=== PATIENT | male | born 1965 | race Caucasian/White ===

== ENCOUNTER 2021-12-27 07:57 | Outpatient (CLI) | payer OTHER, SELFPAY ==
--- NOTE | 2021-12-27 12:38 | WPDPFTINT ---
PFT Procedure Performed PFT Procedure Performed Spirometry with Pre/Post Bronchodilator Plethysmography (Lung Vol) Diffusing Cap (DLCO) Flow Vol Loop PFT Interpretation Lung volumes were measured with the body plethysmography method. Lung volumes are unremarkable. Spirometry showed normal expiratory flow rates and a normal FEV1 to FVC ratio of 77%. Following administration of a bronchodilator there was no significant change in the expiratory flow rates. Lung diffusion capacity is borderline normal at 75% predicted. The flow volume loop is unremarkable. Impression: Spirometry, lung volumes, and lung diffusion capacity all within the normal range.
--- NOTE | 2021-12-27 12:40 | WPDSIXMINUTE ---
Six Minute Walk Procedure Procedure Performed Pulmonary Stress Test (6 min walk) Six Minute Walk Six Minute Walk: This 6 minute walk test was carried out with the patient breathing ambient air. The pre walk oxyhemoglobin saturation was 93%. The patient walked approximately 442 m with no stops during testing. During the walk the oxyhemoglobin saturation remained 94% or higher. The perceived dyspnea at baseline on the Isaiah scale was 0.5 and increased to 2 at the end of testing. Impression: No evidence of oxyhemoglobin desaturation on this testing.
== END 2021-12-27 07:58 | disposition home or self-care (01) ==
LOC: ANHPFT 07:59
PROVIDERS: Visit Provider Nurse Practitioner
DX: J43.9 Emphysema, unspecified (principal)
CPT/HCPCS: 94060; 94618; 94726; 94729

== ENCOUNTER 2022-03-21 07:45 | Outpatient (CLI) | payer OTHER, SELFPAY ==
--- NOTE | 2022-03-23 14:41 | WPDMETH ---
Methacholine Procedure Perform Procedure Performed Methacholine Challenge Methacholine Challenge Methacholine Challenge: Methacholine challenge was performed with quadrupling increases of nebulized methacholine according to the 5 step dosimeter protocol recommended by the ATS/ERS 2017 guidelines. Following administration of 464.4 mcg of methacholine at step 5, the measured FEV1 decreased by approximately 5% from the baseline measurement. Post administration of nebulized short-acting bronchodilator, the FEV1 returned back to near baseline level. Impression: Negative methacholine challenge testing. Normal airway hyperresponsiveness.
== END 2022-03-21 07:46 | disposition home or self-care (01) ==
LOC: ANHPFT 07:47
PROVIDERS: Visit Provider Nurse Practitioner
DX: J45.909 Unspecified asthma, uncomplicated (principal)
CPT/HCPCS: 94070; J7674

== ENCOUNTER 2022-06-28 08:39 | Emergency (ER) | payer OTHER, SELFPAY ==
[2022-06-28 08:46] VITALS: BP 134/68; PULSE 78; RESP 18; TEMP 36.4; O2SAT 100
--- NOTE | 2022-06-28 10:37 | PC.NURSE ---
pt approached intake desk and states he just found out he has to go through his work doctor. pt ambulatory out of ED.
== END 2022-06-28 10:45 | disposition left against medical advice (07) ==
LOC: ANHED 10:42
DX: S39.92XA Unspecified injury of lower back, initial encounter (principal)
CPT/HCPCS: 99199